=== PATIENT | female | born 1970 | race Caucasian/White ===

== ENCOUNTER → 2020-11-26 09:40 | Outpatient (BNVA) | payer SELFPAY | PROVIDERS: Family Provider Family Medicine; Visit Provider Dermatology | DX: Z01.89 Encounter for other specified special examinations (principal) ==

== ENCOUNTER → 2021-06-19 09:20 | Outpatient (BNVA) | payer OTHER, SELFPAY | PROVIDERS: Family Provider Family Medicine; Visit Provider Nurse Practitioner Family | DX: Z20.822 Contact with and (suspected) exposure to COVID-19 (principal) | CPT/HCPCS: 87635 ==

== ENCOUNTER → 2023-02-16 10:51 | Outpatient (BNVA) | payer SELFPAY | PROVIDERS: Family Provider Family Medicine | DX: Z01.89 Encounter for other specified special examinations (principal) ==

== ENCOUNTER 2024-02-21 11:09 | Observation (INO) | payer OTHER, SELFPAY ==
[2024-02-21] VITALS (8 sets, daily range): BP systolic 126–142; BP diastolic 86–98; PULSE 71–107; RESP 15–24; TEMP 36.6–36.9; O2SAT 93–100; BMI 31.1
--- NOTE | 2024-02-21 11:12 | XRR_ITS ---
PROCEDURE INFORMATION: Exam: XR Chest Exam date and time: 02/21/2024 11:22 AM Age: 54 years old Clinical indication: Pain; Angina pectoris; Additional info: Chest pain TECHNIQUE: Imaging protocol: Radiologic exam of the chest. Views: 1 view. COMPARISON: No relevant prior studies available. FINDINGS: Lungs: Unremarkable. No consolidation. Pleural spaces: Unremarkable. No pleural effusion. No pneumothorax. Heart/Mediastinum: Unremarkable. No cardiomegaly. Bones/joints: Unremarkable. XR/XR chest 1V portable [id number] IMPRESSION: No acute findings.
--- NOTE | 2024-02-21 11:12 | ECG_ITS ---
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 Measurements Intervals [place] Rate: 97 P: 59 NH: 165 QRS: -14 QRSD: 103 T: 65 QT: 357 QTc: 455 Interpretive Statements SINUS RHYTHM LOW QRS VOLTAGE IN PRECORDIAL LEADS [QRS DEFLECTION < 1.0 mV IN CHEST LEADS] INCOMPLETE RIGHT BUNDLE BRANCH BLOCK [90+ ms QRS DURATION, TERMINAL R IN V1/V2, 40+ ms S IN I/aVL/V4/V5/V6] POSSIBLE ANTERIOR MYOCARDIAL INFARCTION , OF INDETERMINATE AGE [30 ms Q WAVE IN V3/V4, OR R < 0.2 mV IN V4] No previous ECG available for comparison Electronically Signed On 02-21-2024 16:06:13 CDT by Valentino Storey M.D. [id number]
[2024-02-21 12:17] LABS: Basophils % 0.3 %; Eosinophils # 0.1 10^3/uL (0.0-0.8); Eosinophils % 1.1 %; Hematocrit 42.7 % (36-47); Lymphocytes # 2.4 10^3/uL (0.8-4.8); Lymphocytes % 25.1 %; Mean Corpuscular HGB Conc 32.8 g/dL (30-55); Mean Corpuscular Hemoglobin 31.3 pg (27-33); Mean Corpuscular Volume 95.5 fl (85-98); Mean Platelet Volume 9.6 fL (7.4-10.4); Monocytes # 0.6 10^3/uL (0.2-0.9); Monocytes % 6.2 %; Neutrophils # 6.34 10^3/uL (1.8-7.7); Neutrophils % 67.1 %; Nucleated Red Blood Cells % 0 %; Platelet Count 164 10^3/cmm (157-399); Red Blood Count 4.47 10^6/uL (3.85-5.65); Red Cell Distribution Width 12.4 % (12.1-15.1); White Blood Count 9.45 10^3/uL (3.29-11.43)
[2024-02-21 12:35] LABS: Alanine Aminotransferase 15 U/L (0-33); Albumin Level 4.3 g/dL (3.5-5.2); Alkaline Phosphatase 86 U/L (35-105); Anion Gap 15.4 (5-19); Aspartate Amino Transferase 23 U/L (0-32); Blood Urea Nitrogen 9 mg/dL (6-20); Calcium 9.4 mg/dL (8.5-10.5); Carbon Dioxide 25 mmol/L (22-29); Chloride 102 mmol/L (98-107); Creatinine Clr Calc Pharmacy 107.0071; Glomerular Filtration Rate 86.6 mL/min (90-130); Glucose 107 mg/dL (65-115); Osmolality Calculated 285 mOsm/kg (285-295); Potassium 4.4 mmol/L (3.5-5.1); Sodium 138 mmol/L (136-145); Total Bilirubin 0.4 mg/dL (0.15-1.2); Total Protein 7.3 g/dL (6.6-8.7)
[2024-02-21 12:36] LABS: Troponin(5th) Baseline 86 ng/L (0-10)
--- NOTE | 2024-02-21 13:12 | ECG_ITS ---
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 Measurements Intervals [place] Rate: 79 P: 39 GA: 120 QRS: -1 QRSD: 98 T: 38 QT: 391 QTc: 448 Interpretive Statements SINUS RHYTHM INDETERMINATE AXIS LOW QRS VOLTAGE IN PRECORDIAL LEADS [QRS DEFLECTION < 1.0 mV IN CHEST LEADS] INCOMPLETE RIGHT BUNDLE BRANCH BLOCK [90+ ms QRS DURATION, TERMINAL R IN V1/V2, 40+ ms S IN I/aVL/V4/V5/V6] ST DEVIATION AND MODERATE T-WAVE ABNORMALITY, CONSIDER ANTERIOR ISCHEMIA [-0.1+ mV T-WAVE IN V3/V4] Compared to ECG 02/21/2024 11:15:30 Indeterminate axis now present T-wave abnormality now present Possible ischemia now present Myocardial infarct finding no longer present Electronically Signed On 02-21-2024 16:08:24 CDT by Valentino Storey M.D. [id number]
--- NOTE | 2024-02-21 14:49 | ED_ITS ---
HPI - Chest Pain 2 General: Chief Complaint: Chest Pain Stated Complaint: SOB, chest Pain Time Seen by Provider: 02/21/24 14:37 History of Present Illness: 54-year-old female presents with 2 episo jeffrey of chest pain with exertion. She reports yesterday she was walking her dog had an episode of some chest pain, states she went into the house and rested took a nap and the pain went away. She reports then today she went out to feed her chickens was walking out to them when she had some more chest pain with exertion has resolved. Patient also reports that for about the last week she thinks she has had shingles on the left side with a burning sensation along the left chest wall wrapping around into her back. She is not currently having chest pain or shortness of breath. Associated symptoms: Deny abdominal pain, fever(s), nausea or vomiting Related Data Home Medications Medication Instructions Recorded Confirmed epinephrine 0.3 mg/0.3 mL 0.3 mg IM Q10M PRN 06/19/21 01/22/24 injection, auto-injector Previous Rx's Medication Instructions Recorded methylprednisolone 4 mg tablets in See Rx Instructions PO PER PKG DIR 01/22/24 a dose pack (Medrol (Ayad)) #21 ea Allergies Allergy/AdvReac Type Severity Reaction Status Date / Time bupropion [From Wellbutrin] AdvReac anger Verified 01/22/24 10:33 drospirenone AdvReac migraine Verified 01/22/24 10:33 [From Keerthi (28)] ethinyl estradiol AdvReac migraine Verified 01/22/24 10:33 [From Keerthi (28)] Review of Systems 2 Const: Denies: fever(s) or chills Card: Reports: chest pain and dyspnea on exertion Resp: Denies: productive cough, non-productive cough or wheezing GI: Denies: abdominal pain, nausea or vomiting : Denies: flank pain or difficulty voiding Musc: Reports: other (Please see HPI) Neuro: Denies: headache(s) or numbness in extremities Psych: Denies: anxiety PFSH ED 2 PFSH: Social History Smoking and tobacco/nicotine status: never used tobacco/nicotine Physical Exam 2 Const: COMMON NORMALS: no acute distress and patient oriented x3 Resp: COMMON NORMALS: normal respiratory effort, No retractions, No use of accessory muscles and clear to auscultation bilaterally AUSCULTATION: clear to auscultation bilaterally Cardio: COMMON NORMALS: regular rate and regular rhythm RATE: regular rate RHYTHM: regular rhythm GI: COMMON NORMALS: Normal to inspection, nondistended, normoactive bowel sounds present, Soft to palpation and non-tender PALPATION: Yes Soft to palpation Extremity: COMMON NORMALS: full ROM and capillary refill normal Neuro: COMMON NORMALS: patient oriented x3 Psych: COMMON NORMALS: mental status grossly normal, Normal thought process present, cooperative and normal affect THOUGHT PROCESS: Normal thought process present Skin: COMMON NORMALS: no rashes or lesions noted GENERAL SKIN EXAM: no rashes or lesions noted Course 2 Vital Signs: Vital signs: Vital Signs Temperature 98 F 02/21/24 14:18 Pulse Rate 77 02/21/24 17:06 Respiratory Rate 17 02/21/24 17:00 Blood Pressure 137/97 02/21/24 17:06 Pulse Oximetry 97 02/21/24 17:06 Oxygen Delivery Me thod Room Air 02/21/24 15:30 MDM - Chest Pain Medical Decision Making Patient's diagnostic studies ordered reviewed and interpreted by me. Patient does have elevated troponin with a repeat troponin that has a delta change and once again elevated. Patient's EKG probable anterior septal myocardial infarct is of undetermined age with Q waves present in V1 through V4. Patient complains of chest pain and dyspnea with exertion. Patient to be admitted for further inpatient valuation. Patient was initially started on heparin but was switched to Lovenox based on preference of admitting provider. Also discussed with Dr. Valdovinos, security system installer who consulted and will see patient in the hospital to determine further treatment options. Patient was admitted to the hospitalist in stable condition. Lab Data 02/21/24 12:10 02/21/24 12:10 Radiology Impressions Chest X-Ray 02/21/24 11:12 IMPRESSION: No acute findings. Laboratory Results WBC 9.45 10^3/uL (3.29-11.43) 02/21/24 12:10 RBC 4.47 10^6/uL (3.85-5.65) 02/21/24 12:10 Hgb 14.00 g/dL (11.27-16.99) 02/21/24 12:10 Hct 42.7 % (36-47) 02/21/24 12:10 MCV 95.5 fl (85-98) 02/21/24 12:10 MCH 31.3 pg (27-33) 02/21/24 12:10 MCHC 32.8 g/dL (30-55) 02/21/24 12:10 RDW 12.4 % (12.1-15.1) 02/21/24 12:10 Plt Count 164 10^3/cmm (157-399) 02/21/24 12:10 MPV 9.6 fL (7.4-10.4) 02/21/24 12:10 Neut % (Auto) 67.1 % 02/21/24 12:10 Lymph % (Auto) 25.1 % 02/21/24 12:10 [place] % (Auto) 6.2 % 02/21/24 12:10 Eos % (Auto) 1.1 % 02/21/24 12:10 Baso % (Auto) 0.3 % 02/21/24 12:10 Neut # (Auto) 6.34 10^3/uL (1.8-7.7) 02/21/24 12:10 Lymph # (Auto) 2.4 10^3/uL (0.8-4.8) 02/21/24 12:10 [place] # (Auto) 0.6 10^3/uL (0.2-0.9) 02/21/24 12:10 Eos # (Auto) 0.1 10^3/uL (0.0-0.8) 02/21/24 12:10 Baso # (Auto) 0.0 10^3/uL (0.0-0.1) 02/21/24 12:10 Nucleated RBC % (auto) 0 % 02/21/24 12:10 Nucleated RBCs # 0.0 /100WBC 02/21/24 12:10 D-Dimer 6.60 ug/mLFEU (0-0.59) H 02/21/24 12:10 Sodium 138 mmol/L (136-145) 02/21/24 12:10 Potassium 4.4 mmol/L (3.5-5.1) 02/21/24 12:10 Chloride 102 mmol/L (98-107) 02/21/24 12:10 Carbon Dioxide 25 mmol/L (22-29) 02/21/24 12:10 Anion Gap 15.4 (5-19) 02/21/24 12:10 BUN 9 mg/dL (6-20) 02/21/24 12:10 Creatinine 0.7 mg/dL (0.5-0.9) 02/21/24 12:10 GFR Calculation 86.6 mL/min (90-130) L 02/21/24 12:10 Glucose 107 mg/dL (65-115) 02/21/24 12:10 Calculated Osmolality 285 mOsm/kg (285-295) 02/21/24 12:10 Calcium 9.4 mg/dL (8.5-10.5) 02/21/24 12:10 Total Bilirubin 0.4 mg/dL (0.15-1.2) 02/21/24 12:10 AST 23 U/L (0-32) 02/21/24 12:10 ALT 15 U/L (0-33) 02/21/24 12:10 Alkaline Phosphatase 86 U/L (35-105) 02/21/24 12:10 Troponin T Baseline 86 ng/L (0-10) H 02/21/24 12:10 Troponin T 120 Minute 103.6 ng/L (0-10) H 02/21/24 14:20 Delta Troponin T 17.6 ABS# (0-10) H* 02/21/24 14:20 Total Protein 7.3 g/dL (6.6-8.7) 02/21/24 12:10 Albumin 4.3 g/dL (3.5-5.2) 02/21/24 12:10 Globulin 3.0 g/dL (1.3-4.6) 02/21/24 12:10 All radiology interpretation(s) finalized by discharge Discharge Plan Discharge Patient Disposition: Admitted As Inpatient Admit Provider: Amy Dalal Clinical Impression: Non-ST elevated myocardial infarction (non-STEMI) Condition: Stable Coding Level of Care Code ED Power Plant Superintendent for Earl Batista
[2024-02-21 14:54] LABS: Troponin 5 2HR 103.6 ng/L (0-10)
[2024-02-21 14:55] LABS: Troponin 5 2HR Delta 17.6 ABS# (0-10)
[2024-02-21] MEDS: aspirin 81 mg Chew Tablet 324 MG PO (15:13)
[2024-02-21] MEDS: heparin 5,000 unit/mL INJ 1 mL 4000 UNIT IVP (15:15)
[2024-02-21] MEDS: heparin drip 25,000 UNIT/500 ML PREMIX 22.32 UNIT IV (15:18)
--- NOTE | 2024-02-21 15:31 | P.HP_ITS ---
Providers/Chief Complaint 2 Primary Care Provider: [employer]OYEE [employer] Chief Complaint: SOB, chest Pain History of Present Illness Renae Messina is a 54 year old female who presented to the hospital for chief complaint of chest discomfort shortness of breath and diaphoresis. Patient is stating that she was walking her dog a day before her presentation to the ER when she started feeling a little pull on the left side of her chest, initially she thought it was related to her recent itching along the left subcostal region which was radiating towards her back, she was thinking about shingles but never experienced any rash or fever, never experienced any pain. She had recurrent of symptoms on Wednesday that prompted her visit to the ER. 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 Stating that there is family history of blood clots, father had multiple blood clots that were removed and his young age. Patient does not smoke or drink alcohol. Endorsing history of 1 miscarriage. In the ER she was diagnosed with non-STEMI she was put on ACS protocol however I requested D-dimer which came back high CTA chest and venous Doppler was requested Review of Systems 2 Const: Denies: fever(s) Eyes: Denies: change in vision ENMT: Denies: throat pain Card: Reports: chest pain Resp: Reports: dyspnea Medications/Allergies Home Medications Medication Instructions Recorded Confirmed Last Taken Type epinephrine 0.3 mg/0.3 mL 0.3 mg IM Q10M PRN Allergic 06/19/21 02/21/24 Unknown History injection, auto-injector Reaction Allergies Allergy/AdvReac Type Severity Reaction Status Date / Time bupropion [From Wellbutrin] AdvReac anger Verified 01/22/24 10:33 drospirenone AdvReac migraine Verified 01/22/24 10:33 [From Keerthi (28)] ethinyl estradiol AdvReac migraine Verified 01/22/24 10:33 [From Keerthi (28)] PFSH Acute 2 PFSH: Medical History (Updated 02/22/24 @ 11:07 by Amy Dalal MD) Hyperlipidemia LDL goal <70 Essential hypertension Social History Smoking and tobacco/nicotine status: never used tobacco/nicotine Vitals/I&O/Wt Last Vital Signs Temp 98 F 02/21/24 14:18 Pulse 82 02/21/24 14:18 BP 131/86 02/21/24 14:18 Pulse Ox 100 02/21/24 14:18 O2 Del Method Room Air 02/21/24 14:18 Weight last 48 hrs Weight 92.986 kg Physical Exam 2 Narrative: No active chest pain Hemodynamically stable GCS 15 Euvolemic No lower extremity swelling Pleasant and cooperative S1, S2 Nonfocal neuroexam Data 02/22/24 03:16 02/22/24 03:16 A&P Assessment and plan (1) Essential hypertension: (2) Non-ST elevated myocardial infarction (non-STEMI): (3) Hyperlipidemia LDL goal <70: (4) DVT (deep venous thrombosis): (5) Pulmonary embolism: Plan Non-STEMI Start ACS protocol loaded with aspirin and Plavix Dr. Ramírez consulted N.p.o. after midnight Full code Patient noting family history of hypercoagulable state Requested D-dimer which came back high, requested CTA chest and venous Doppler Patient does not have a history of hypertension, does not smoke Not using oral contraceptive pills for menopausal symptoms Attestations 2 Medical Necessity Statement*: Anticipating more than 2 midnights for management of non-STEMI Coding Level of Care Code Acute Code for Chg Fwd Diagnoses Essential hypertension I10 Non-ST elevated myocardial infarction (non-STEMI) I21.4 Hyperlipidemia LDL goal <70 E78.5 DVT (deep venous thrombosis) I82.409 Pulmonary embolism I26.99
[2024-02-21] MEDS: enoxaparin 100 mg/mL Syringe 90 MG SUBCUT (16:14)
--- NOTE | 2024-02-21 16:50 | USCV_ITS ---
Renae Messina Age: 54 Gender: F : 1970 Exam Date: 02/21/2024 18:10 Ordering Phys: Amy Dalal MD Technologist: Exam Location: [facility] [place] Indication: nstemi BP: 142 / 88 HR: 73 Rhythm: Sinus Technical Quality: MEASUREMENTS (Male / Female) Normal Values 2D ECHO LV Diastolic Diameter PLAX 3.3 cm 4.2 - 5.9 / 3.9 - 5.3 cm IVS Diastolic Thickness 1.1 cm 0.6 - 1.0 / 0.6 - 0.9 cm IVS Systolic Thickness 1.4 cm LVPW Diastolic Thickness 1.1 cm 0.6 - 1.0 / 0.6 - 0.9 cm LVPW Systolic Thickness 1.8 cm LVOT Diameter 2.0 cm LV Ejection Fraction 2D Teich 51.6 % LV Ejection Fraction MOD 4C 54.7 % LV Ejection Fraction MOD 2C 44.2 % LV Ejection Fraction 2C AL 44.5 % LA Diameter 2.8 cm RA Systolic Volume 4C AL 53.8 ml RA Systolic Volume 4C MOD 52.0 ml Aorta at Sinotubular Diameter 2.4 cm IVC Diameter 2.1 cm M-MODE LA Ao Ratio MM 0.9 AV Cusp Separation MM 2.4 cm DOPPLER AV Peak Velocity 115.0 cm/s LVOT Peak Velocity 89.0 cm/s AV Area Cont Eq vti 4.2 cm squared AV Area Cont Eq pk 2.4 cm squared MV Area PHT 4.3 cm squared Mitral E to A Ratio 0.8 TV Peak Velocity 220.0 cm/s TR Peak Velocity 254.0 cm/s TR Peak Gradient 25.8 mmHg TV Peak E Velocity 74.0 cm/s Right Atrial Pressure 3.0 mmHg Pulmonary Artery Systolic Pressu 28.8 mmHg PV Peak Velocity 53.5 cm/s FINDINGS Left Ventricle Normal left ventricular size and systolic function, EF 55%.no regional wall motion abnormalities. Right Ventricle Mildly dilated right ventricle with a slightly diminished ejection fraction Right Atrium Mildly dilated Left Atrium Normal left atrial size. Mitral Valve No gross abnormalities noted Aortic Valve No gross abnormalities noted Tricuspid Valve No gross abnormalities noted Pulmonic Valve Pulmonic valve not well visualized. Pericardium No pericardial effusion. Aorta Normal aortic annulus size. IVC Inferior vena cava not visualized. CONCLUSIONS Normal left ventricular size and systolic function, EF 55%.no regional wall motion abnormalities. Mildly dilated right ventricle with a slightly diminished ejection fraction. Mildly dilated right atrium There is no pericardial effusion. There are no intracardiac masses. No similar previous studies are available for comparison Dr Gail Lucero MD FAC (Electronically Signed) Final Date: 21 February 2024 19:27 S
--- NOTE | 2024-02-21 17:13 | ECG_ITS ---
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 Measurements Intervals [place] Rate: 77 P: 53 TN: 136 QRS: 17 QRSD: 102 T: 23 QT: 414 QTc: 469 Interpretive Statements SINUS RHYTHM INDETERMINATE AXIS LOW QRS VOLTAGE IN PRECORDIAL LEADS [QRS DEFLECTION < 1.0 mV IN CHEST LEADS] MODERATE T-WAVE ABNORMALITY, CONSIDER ANTERIOR ISCHEMIA [-0.1+ mV T-WAVE IN V3/V4] Compared to ECG 02/21/2024 14:15:58 Incomplete right bundle-branch block no longer present T-wave abnormality still present Possible ischemia still present Electronically Signed On 02-22-2024 7:59:18 CDT by Valentino Storey M.D. [id number]
--- NOTE | 2024-02-21 17:23 | PC.NURSE ---
patient transferred from ED to CSU at 1715.
[2024-02-21 17:31] LABS: Thyroid Stimulating Hormone 2.39 uIU/mL (0.27-4.20)
[2024-02-21 17:32] LABS: Estmated Average Glucose 103; Hemoglobin A1C 5.2 % (4.0-6.0)
[2024-02-21] MEDS: pantoprazole 40 mg SDV IVP (17:52)
[2024-02-21] MEDS: clopidogrel 300 mg Tablet PO (17:52)
[2024-02-21 19:27] LABS: Troponin 5 6HR 76.46 ng/L (0-10)
[2024-02-21 19:28] LABS: Troponin 5 6HR Delta -9.54 ng/L (0-12)
--- NOTE | 2024-02-21 19:56 | USR_ITS ---
PROCEDURE INFORMATION: Exam: US Duplex Lower Extremity Veins, Bilateral Exam date and time: 02/21/2024 8:14 PM Age: 54 years old Clinical indication: Abnormal findings; Abnormal lab test; Elevated d-dimer; Additional info: Swelling TECHNIQUE: Imaging protocol: Real-time duplex ultrasound of the bilateral extremities with 2-D corbett scale, color Doppler flow and spectral waveform analysis including responses to compression and other maneuvers (when performed) with image documentation. Complete exam focused on the lower extremity veins. COMPARISON: No relevant prior studies available. FINDINGS: Right deep veins: Unremarkable. The common femoral, femoral, proximal profunda femoral and popliteal veins are patent without thrombus. Normal Doppler waveforms. Normal compressibility and/or augmentation response. Visualized posterior tibial and peroneal veins appear unremarkable. Left deep veins: The common femoral, femoral, and proximal profunda femoral veins are patent without thrombus. Normal Doppler waveforms. Normal compressibility and/or augmentation response. Partially occluding DVT is seen in the left popliteal vein and left peroneal vein with noncompressibility. Visualized posterior tibial vein appears unremarkable. Superficial veins: Greater saphenous veins at the saphenofemoral junctions are patent bilaterally without thrombus. Soft tissues: Unremarkable. US/[place] [id number] IMPRESSION: 1. No evidence of deep vein thrombosis of the right lower extremity. 2. Partially occluding deep vein thrombosis involving the left popliteal and peroneal veins of the left lower extremity.
--- NOTE | 2024-02-21 20:01 | P.CONIM_ITS ---
Providers/Reason For Consult 2 Consulting Physician/Specialty*: Amy Ramírez MD/cardiology Reason for Consult*: Chest pain Non-ST elevation FL Hyperlipidemia Hypertension Requesting Physician: Dr. 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 According to the patient she has a history of hypertension hyperlipidemia she was walking her dog yesterday she noticed chest pressure and shortness of breath to the extent she felt diaphoretic therefore she sat down which improved symptoms however she noticed being fatigued she slept for more than 3 hours. Today she woke up tried mild exertion which brought the similar symptoms therefore decided to come to the ER. She was noted to have abnormal delta fifth generation troponin in the range qualifying for non-ST elevation FL. Twelve-lead EKG showed sinus rhythm normal anterolateral T wave inversion with inferior nonspecific ST changes suggestive of possible ischemia in anterior wall. Patient was started on IV heparin currently she is chest pain-free. Denies any PND orthopnea. Echocardiogram was performed which showed normal ejection fraction no wall motion abnormality. Medications/Allergies Home Medications Medication Instructions Recorded Confirmed Last Taken Type epinephrine 0.3 mg/0.3 mL 0.3 mg IM Q10M PRN Allergic 06/19/21 02/21/24 Unknown History injection, auto-injector Reaction Allergies Allergy/AdvReac Type Severity Reaction Status Date / Time bupropion [From Wellbutrin] AdvReac anger Verified 01/22/24 10:33 drospirenone AdvReac migraine Verified 01/22/24 10:33 [From Keerthi (28)] ethinyl estradiol AdvReac migraine Verified 01/22/24 10:33 [From Keerthi (28)] Current Medications Generic Name Dose Route Start Last Admin Trade Name Freq PRN Reason Stop Dose Admin Pantoprazole Sodium 40 mg 02/21/24 18:00 02/21/24 17:52 Pantoprazole 40 Mg Sdv IVP 40 mg BID AURY Administration PFSH Acute 2 PFSH: Medical History (Updated 02/21/24 @ 20:15 by Amy Ramírez MD) Hyperlipidemia LDL goal <70 Essential hypertension Social History Smoking and tobacco/nicotine status: never used tobacco/nicotine Vitals/I&O/Wt Last Vital Signs Temp 98.4 F 02/21/24 17:52 Pulse 71 02/21/24 17:52 Resp 16 02/21/24 17:52 BP 142/88 02/21/24 17:52 Pulse Ox 99 02/21/24 17:52 O2 Del Method Room Air 02/21/24 17:52 02/21/24 02/21/24 02/21/24 06:59 14:59 22:59 Intake Total 20.46 / 20.46 Balance 20.46 / 20.46 Weight last 48 hrs Weight 213 lb 13.574 oz Weight 205 lb Physical Exam 2 Const: OTHER: GENERAL: Patient is alert, awake and oriented x3. HEART: Regular S1 and S2. No murmur, rub or gallop. LUNGS: Clear to auscultate bilaterally. EXTREMITIES: Lower extremities without edema bilaterally. Data 02/21/24 12:10 02/21/24 12:10 A&P Assessment and plan (1) Non-ST elevated myocardial infarction (non-STEMI): Patient is ruled in for non-ST elevation FL, advise statin beta-mojgan heparin, echocardiogram showed normal ejection fraction no wall motion abnormality cannot rule out myopericarditis however will proceed with left heart catheterization further plan be advised as per problems the patient. (2) Essential hypertension: Well-controlled beta-mojgan is added (3) Hyperlipidemia LDL goal <70: High intensity statin we will be advised Consult Attestations 2 Medical Necessity Statement: Patient requires continuation of hospitalization for above defined care. Coding Level of Care Code Acute Code for Chg Fwd Diagnoses Non-ST elevated myocardial infarction (non-STEMI) I21.4 Essential hypertension I10 Hyperlipidemia LDL goal <70 E78.5
--- NOTE | 2024-02-21 20:38 | CTR_ITS ---
PROCEDURE INFORMATION: Exam: CTA Chest With Contrast Exam date and time: 02/21/2024 9:37 PM Age: 54 years old Clinical indication: Angina; Additional info: Cp and SOB, lle dvt TECHNIQUE: Imaging protocol: Computed tomographic angiography of the chest with contrast. Exam focused on the arteries. 3D rendering (Not supervised by radiologist): MIP and/or 3D reconstructed images were created by the technologist. Radiation optimization: All CT scans at this facility use at least one of these dose optimization techniques: automated exposure control; mA and/or kV adjustment per patient size (includes targeted exams where dose is matched to clinical indication); or iterative reconstruction. Contrast material: OMNI 350; Contrast volume: 100 ml; Contrast route: INTRAVENOUS (IV); COMPARISON: CR XR chest 1V portable [id number] 02/21/2024 11:22 AM RADIATION DOSE METRICS: Total DLP (mGy-cm): 411 FINDINGS: Pulmonary arteries: Extensive bilateral pulmonary emboli, including in the lobar arteries and segmental arteries. No large saddle embolism. Aorta: No aortic aneurysm or dissection. Lungs: Minimal dependent atelectasis. No consolidation or obvious pulmonary infarct. Pleural spaces: No pneumothorax or pleural effusion. Heart: No cardiomegaly. No pericardial effusion. Heart RV/LV ratio: 1.5, indicative of right heart strain. Coronary arteries: No coronary artery calcifications. Lymph nodes: No adenopathy. Bones/joints: No acute osseous abnormality. Soft tissues: Unremarkable. CT/CT angio chest PE protcl [id number] IMPRESSION: 1. Extensive bilateral pulmonary emboli, including in the lobar arteries and segmental arteries. No large saddle embolism. 2. Right heart strain, with RV/LV ratio of 1.5. 3. Minimal dependent atelectasis. 4. No consolidation or obvious pulmonary infarct.
[2024-02-21] MEDS: iohexol 350 mg/mL 500 mL Btl (per mL) IV (21:45)
[2024-02-22] VITALS (7 sets, daily range): BP systolic 115–127; BP diastolic 71–84; PULSE 57–70; RESP 14–17; TEMP 36.6–36.7; O2SAT 98–100
[2024-02-22 03:39] LABS: Basophils % 0.5 %; Eosinophils # 0.1 10^3/uL (0.0-0.8); Eosinophils % 1.7 %; Hematocrit 38.9 % (36-47); Lymphocytes # 3.4 10^3/uL (0.8-4.8); Lymphocytes % 45.4 %; Mean Corpuscular HGB Conc 32.6 g/dL (30-55); Mean Corpuscular Hemoglobin 31.4 pg (27-33); Mean Platelet Volume 9.9 fL (7.4-10.4); Monocytes # 0.5 10^3/uL (0.2-0.9); Monocytes % 6.9 %; Neutrophils # 3.41 10^3/uL (1.8-7.7); Neutrophils % 45.4 %; Nucleated Red Blood Cells % 0 %; Platelet Count 157 10^3/cmm (157-399); Red Blood Count 4.05 10^6/uL (3.85-5.65); Red Cell Distribution Width 12.4 % (12.1-15.1); White Blood Count 7.53 10^3/uL (3.29-11.43)
[2024-02-22 03:56] LABS: Blood Urea Nitrogen 9 mg/dL (6-20); Calcium 8.8 mg/dL (8.5-10.5); Carbon Dioxide 24 mmol/L (22-29); Chloride 106 mmol/L (98-107); Creatinine Clr Calc Pharmacy 109.2817; Glomerular Filtration Rate 86.6 mL/min (90-130); Glucose 103 mg/dL (65-115); Magnesium 1.7 mg/dL (1.7-2.3); Osmolality Calculated 291 mOsm/kg (285-295); Sodium 141 mmol/L (136-145)
[2024-02-22] MEDS: enoxaparin 100 mg/mL Syringe 90 MG SUBCUT (04:19)
[2024-02-22] MEDS: clopidogrel 75 mg Tablet PO (08:05)
[2024-02-22] MEDS: aspirin 81 mg EC Tablet PO (08:06)
--- NOTE | 2024-02-22 08:28 | PC.NURSE ---
Addendum entered by Nila Platt RN 02/22/24 08:31: Informed Dr Dalal. Original Note: patient refusing to take most medications this morning stating I do not take any home medications. However patient did agree to take aspirin and plavix for her known DVTs.
--- NOTE | 2024-02-22 09:19 | PC.CHAP ---
Pastoral Care Encounter/Spiritual Assessment Type of Contact [] Declined cancer registry manager visit [] Patient/Family/Request visit [] Outpatient visit [] Follow-up visit [] Physician referral [] Code/Alert [x] Routine visit [] Staff referral [] Actively dying [] Patient sleeping [] Family support [] [] Out of room [] Palliative care [] [] Receiving care in room [] Pre-surgical visit [] Trauma [] Long length of stay [] ICU visit [] Other: Relational/Emotional Strength [x] Patient feels connected with others/family/visitors/staff [] Distress [] Loneliness/isolation [] Abandonment Spirituality of Patient [x] Person of Radha [] Attends Jehovah'S Witness of their Radha [x] Believes in Prayer [] Reads Bible or Zoroastrian materials [] There are Spiritual issues to be addressed [employer] Interventions [x] Prayer [x] Active listening [] Non-anxious presence [x] Spiritual/emotional support [] Crisis/trauma care [] Spiritual counseling [] Bereavement support [] Provided bereavement packet [] Provided Bible/devotional materials [] Provided toy/stuffed animal, coloring book to patient or family member [] Provided Communion [] Anointing/[place] [] Salvation [x] Completed spiritual assessment [] Other: Impact on Illness or Injury [] Angry [] Fearful [] Anxious [] Often cries [] Exhaustion [] Unable to work [] Unable to attend sikhism [] Unable to walk/stand [] Unable to read [] Unable to drive [] Unable to eat/drink [] Unable to sleep [] Unable to be with family [] Patient intubated [] Other: Summary Time spent with patient 5 min
--- NOTE | 2024-02-22 10:21 | P.PN_ITS ---
Subjective 2 Subjective: No overnight event patient was noted to have pulmonary embolism on CTA left heart catheterization was canceled Vitals/I&O/Wt Last Vital Signs Temp 97.9 F 02/22/24 07:07 Pulse 66 02/22/24 07:54 Resp 16 02/22/24 07:54 BP 127/71 02/22/24 07:07 Pulse Ox 98 02/22/24 07:54 O2 Del Method Room Air 02/22/24 07:54 02/21/24 02/22/24 02/22/24 22:59 06:59 14:59 Intake Total 270.46 / 270.46 610 / 610 Balance 270.46 / 270.46 610 / 610 Weight last 48 hrs Weight 213 lb 13.574 oz Weight 213 lb 13.574 oz Weight 205 lb Physical Exam 2 Const: OTHER: GENERAL: Patient is alert, awake and oriented x3. HEART: Regular S1 and S2. No murmur, rub or gallop. LUNGS: Clear to auscultate bilaterally. EXTREMITIES: Lower extremities without edema bilaterally. Data 02/22/24 03:16 02/22/24 03:16 A&P Assessment and plan (1) Non-ST elevated myocardial infarction (non-STEMI): Type II secondary to pulmonary embolism/DVT, echocardiogram showed mildly enlarged RV, left heart catheterization was canceled will switch patient to anticoagulation for 1 year since it is known provokable cause. (2) Essential hypertension: Well-controlled continue medicine (3) Hyperlipidemia LDL goal <70: High intensity statin we will be advised Attestations 2 Medical Necessity Statement*: From May cardiovascular perspective patient can be discharged on anticoagulation will see patient in the clinic in 6 to 8 weeks Coding Level of Care Code Acute Code for Chg Fwd Diagnoses Non-ST elevated myocardial infarction (non-STEMI) I21.4 Essential hypertension I10 Hyperlipidemia LDL goal <70 E78.5
--- NOTE | 2024-02-22 11:08 | PM.DCS ---
Discharge Providers Date of Admission: 02/21/24 16:27 Date of Discharge: February 22, 2024 Attending Provider at Admission: Amy Dalal MD Attending Provider at Discharge: Amy Dalal MD Primary Care Provider: [employer] Diagnoses at Discharge Discharge Diagnosis (1) Essential hypertension: Status: Acute (2) Non-ST elevated myocardial infarction (non-STEMI): Status: Acute (3) Hyperlipidemia LDL goal <70: Status: Acute (4) DVT (deep venous thrombosis): Status: Acute (5) Pulmonary embolism: Status: Acute Reason for Visit Reason for Visit: SOB, chest Pain Hospital Course Hospital Course 54-year-old female who presented with chest pain was diagnosed with non-STEMI troponin leak, remained chest pain-free, her D-dimer returned high at 6.6, CTA chest and venous Doppler revealed bilateral PE and right heart strain without saddle embolism and left leg DVT. She was started on therapeutic Lovenox in the hospital, ACS protocol discontinued, her troponin leak is likely related to heart strain from pulmonary embolism, echo showed preserved EF with mildly dilated right ventricle consistent with PE, patient remained hemodynamically stable, no active chest pain, this is unprovoked pulmonary embolism considering family history requested acquired thrombophilia workup, autoimmune disease protein C, protein S activity, patient will need lifelong anticoagulating agent I will give her referral to see Dr. Jeffries as well. She carries a history of miscarriage requested antiphospholipid antibodies as well. Patient does not have any history of cancer, colonoscopy & mammograms unremarkable for any malignant pathological lesions as per the patient. 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 Physical Exam Narrative: Awake and alert GCS 15 Hemodynamically stable Euvolemic Pleasant cooperative Discharge Data Studies Completed and Pending Completed Studies During Hospitalization Category Date Time Status CT angio chest PE protcl [id number] Stat Cat Scan 02/21/24 20:38 Completed XR chest 1V portable [id number] Urgent Exams 02/21/24 11:12 [place] [id number] Routine Ultrasound 02/21/24 19:56 Completed CV. echo complete* [id number] Routine Ultrasound 02/21/24 16:50 Completed Pending at discharge Category Date Time Status KACIE Profile Rheumatology Routine Lab 02/22/24 10:50 Received Antiphospholipid Antibody Ramirez Routine Lab 02/22/24 10:50 Received PROTEIN C, ACTIVITY Routine Lab 02/22/24 10:50 Received PROTEIN S, ACTIVITY Routine Lab 02/22/24 10:50 Received Radiology Impressions Chest X-Ray 02/21/24 11:12 IMPRESSION: No acute findings. Venous Duplex 02/21/24 19:56 IMPRESSION: 1. No evidence of deep vein thrombosis of the right lower extremity. 2. Partially occluding deep vein thrombosis involving the left popliteal and peroneal veins of the left lower extremity. ADDENDUM: 02/21/248 THIS REPORT CONTAINS FINDINGS THAT MAY BE CRITICAL TO PATIENT CARE. The findings were verbally communicated via telephone conference with Dr Carpenter at 10:25 PM CDT on 02/21/2024. The findings were acknowledged and understood. Awaiting CTA chest. Chest CTA 02/21/24 20:38 IMPRESSION: 1. Extensive bilateral pulmonary emboli, including in the lobar arteries and segmental arteries. No large saddle embolism. 2. Right heart strain, with RV/LV ratio of 1.5. 3. Minimal dependent atelectasis. 4. No consolidation or obvious pulmonary infarct. ADDENDUM: 02/21/242244 ADDENDUM: THIS REPORT CONTAINS FINDINGS THAT MAY BE CRITICAL TO PATIENT CARE. The findings were verbally communicated via telephone conference with THERESA Loza at 10:43 PM CDT on 02/21/2024. The findings were acknowledged and understood. Laboratory Results WBC 7.53 10^3/uL (3.29-11.43) 02/22/24 03:16 RBC 4.05 10^6/uL (3.85-5.65) 02/22/24 03:16 Hgb 12.70 g/dL (11.27-16.99) 02/22/24 03:16 Hct 38.9 % (36-47) 02/22/24 03:16 MCV 96.0 fl (85-98) 02/22/24 03:16 MCH 31.4 pg (27-33) 02/22/24 03:16 MCHC 32.6 g/dL (30-55) 02/22/24 03:16 RDW 12.4 % (12.1-15.1) 02/22/24 03:16 Plt Count 157 10^3/cmm (157-399) 02/22/24 03:16 MPV 9.9 fL (7.4-10.4) 02/22/24 03:16 Neut % (Auto) 45.4 % 02/22/24 03:16 Lymph % (Auto) 45.4 % 02/22/24 03:16 Ramsey % (Auto) 6.9 % 02/22/24 03:16 Eos % (Auto) 1.7 % 02/22/24 03:16 Baso % (Auto) 0.5 % 02/22/24 03:16 Neut # (Auto) 3.41 10^3/uL (1.8-7.7) 02/22/24 03:16 Lymph # (Auto) 3.4 10^3/uL (0.8-4.8) 02/22/24 03:16 Ramsey # (Auto) 0.5 10^3/uL (0.2-0.9) 02/22/24 03:16 Eos # (Auto) 0.1 10^3/uL (0.0-0.8) 02/22/24 03:16 Baso # (Auto) 0.0 10^3/uL (0.0-0.1) 02/22/24 03:16 Nucleated RBC % (auto) 0 % 02/22/24 03:16 Nucleated RBCs # 0.0 /100WBC 02/22/24 03:16 D-Dimer 6.60 ug/mLFEU (0-0.59) H 02/21/24 12:10 Sodium 141 mmol/L (136-145) 02/22/24 03:16 Potassium 4.0 mmol/L (3.5-5.1) 02/22/24 03:16 Chloride 106 mmol/L (98-107) 02/22/24 03:16 Carbon Dioxide 24 mmol/L (22-29) 02/22/24 03:16 Anion Gap 15.0 (5-19) 02/22/24 03:16 BUN 9 mg/dL (6-20) 02/22/24 03:16 Creatinine 0.7 mg/dL (0.5-0.9) 02/22/24 03:16 GFR Calculation 86.6 mL/min (90-130) L 02/22/24 03:16 Glucose 103 mg/dL (65-115) 02/22/24 03:16 Estimat Average Glucose 103 02/21/24 12:10 Hemoglobin A1c 5.2 % (4.0-6.0) 02/21/24 12:10 Calculated Osmolality 291 mOsm/kg (285-295) 02/22/24 03:16 Calcium 8.8 mg/dL (8.5-10.5) 02/22/24 03:16 Magnesium 1.7 mg/dL (1.7-2.3) 02/22/24 03:16 Total Bilirubin 0.4 mg/dL (0.15-1.2) 02/21/24 12:10 AST 23 U/L (0-32) 02/21/24 12:10 ALT 15 U/L (0-33) 02/21/24 12:10 Alkaline Phosphatase 86 U/L (35-105) 02/21/24 12:10 Troponin T Baseline 86 ng/L (0-10) H 02/21/24 12:10 Troponin T 120 Minute 103.6 ng/L (0-10) H 02/21/24 14:20 Delta Troponin T 17.6 ABS# (0-10) H* 02/21/24 14:20 Troponin T Hi Sens 6Hr 76.46 ng/L (0-10) H 02/21/24 18:07 Troponin T Hi Sens 6Hr Delta -9.54 ng/L (0-12) L 02/21/24 18:07 Total Protein 7.3 g/dL (6.6-8.7) 02/21/24 12:10 Albumin 4.3 g/dL (3.5-5.2) 02/21/24 12:10 Globulin 3.0 g/dL (1.3-4.6) 02/21/24 12:10 TSH 2.39 uIU/mL (0.27-4.20) 02/21/24 12:10 Vitals Last Vital Signs Temp 97.9 F 02/22/24 07:07 Pulse 66 02/22/24 07:54 Resp 16 02/22/24 07:54 BP 127/71 02/22/24 07:07 Pulse Ox 98 02/22/24 07:54 O2 Del Method Room Air 02/22/24 07:54 Discharge Plan Discharge Patient Disposition: Home Condition: Stable Prescriptions: New Eliquis 5 mg tablet 5 mg PO BID Qty: 120 8RF Rx Instructions: 10 mg twice daily for 7 days then 5 mg twice daily lifelong Continued epinephrine 0.3 mg/0.3 mL auto-injector 0.3 mg IM Q10M PRN (Reason: Allergic Reaction) Rx Instructions: for 2 doses Discharge Orders: Discharge Order (Routine); Ordered 02/22/24 Ordered By: Amy Dalal Referrals: Moraima Tinsley MD [Family Provider] - 02/29/24 9:15 am Caroline Britton FNP [Nurse Practitioner] - 03/01/24 4:00 pm Jeffrey Jeffries MD [Hospitalist] - 2 weeks (Acquired thrombophilia) Patient Instructions: Opioid Safety Discharge Attestations Time Spent in Discharge Care*: greater than 30 min Quality Metrics Clinical Quality Measures [ No reported AMI, CVA or VTE this stay] Coding Level of Care Code Acute Code for Chg Fwd Diagnoses Essential hypertension I10 Non-ST elevated myocardial infarction (non-STEMI) I21.4 Hyperlipidemia LDL goal <70 E78.5 DVT (deep venous thrombosis) I82.409 Pulmonary embolism I26.99
--- NOTE | 2024-02-22 12:30 | PC.NURSE ---
patient discharged to home. Instructed patient on new medication and follow up needs. Patient verbalized complete understanding. IV removed intact, tolerated well. Patient left ambulatory with family at side. Patient denies pain or needs will continue to monitor.
[2024-02-23 14:41] LABS: COMPLEMENT, TOTAL (CH50) >60 U/mL (31-60)
[2024-02-24 06:16] LABS: CENTROMERE B ANTIBODY <1.0 NEG AI (<1.0 NEG); JO-1 ANTIBODY <1.0 NEG AI (<1.0 NEG); RNP ANTIBODY <1.0 NEG AI (<1.0 NEG); SCL-70 ANTIBODY <1.0 NEG AI (<1.0 NEG); SJOGREN'S ANTIBODY (SS-A) <1.0 NEG AI (<1.0 NEG); SM ANTIBODY <1.0 NEG AI (<1.0 NEG); SS-B <1.0 NEG AI (<1.0 NEG)
[2024-02-24 16:00] LABS: ANA SCREEN, IFA NEGATIVE (NEGATIVE)
[2024-02-24 22:35] LABS: PROTEIN S, ACTIVITY 89 % normal (60-140)
[2024-02-25 07:30] LABS: THYROID PEROXIDASE ANTIBODIES 1 IU/mL (<9)
[2024-02-25 13:05] LABS: COMPLEMENT COMPONENT C3C 165 mg/dL (83-193); COMPLEMENT COMPONENT C4C 24 mg/dL (15-57)
[2024-02-26 05:24] LABS: PROTEIN C, ACTIVITY 148 % normal (70-180)
[2024-02-28 00:19] LABS: DNA AB (DS) CRITHIDIA,IFA NEGATIVE (NEGATIVE)
[2024-03-01 08:23] LABS: Phosphatidylserine IgG 10 U (< OR = 30); Phosphatidylserine IgM <9 U (< OR = 30)
[2024-03-02 08:19] LABS: Beta 2 Glycoprotein IGA <2.0 U/mL; Beta 2 Glycoprotein IGG <2.0 U/mL; Beta 2 Glycoprotein IGM <2.0 U/mL; CARDIOLIPIN AB (IGA) <2.0 APL-U/mL; CARDIOLIPIN AB (IGG) <2.0 GPL-U/mL; CARDIOLIPIN AB (IGM) <2.0 MPL-U/mL
== END 2024-02-22 12:45 | disposition home or self-care (01) ==
LOC: ER 14:52 → CSU 17:09
PROVIDERS: Internal Medicine Cardiovascular Disease; Physician Assistant; Admitting Provider Internal Medicine; Emergency Provider Student in an Organized Health Care Education/Training Program; Family Provider Family Medicine; PCP Family Medicine; Visit Provider Internal Medicine
DX: I21.4 Non-ST elevation (NSTEMI) myocardial infarction (principal); I10 Essential (primary) hypertension; E78.5 Hyperlipidemia, unspecified; I82.409 Acute embolism and thrombosis of unspecified deep veins of unspecified lower extremity; I26.99 Other pulmonary embolism without acute cor pulmonale
CPT/HCPCS: 36415; 71045; 71275; 80048; 80053; 83036; 83516; 83735; 84443; 84484; 85025; 85303; 85306; 85378; 86146; 86147; 86160; 86162; 86235; 86255; 86376; 93005; 93306; 93970; 96365; 96372; 96375; 99285; G0378; J1644; J1650; J2470

== ENCOUNTER 2024-03-01 20:53 | Emergency (ER) | payer OTHER, SELFPAY ==
[2024-03-01 21:03] VITALS: BP 112/76; PULSE 68; RESP 16; TEMP 36.7; O2SAT 98; BMI 31.9
--- NOTE | 2024-03-01 21:26 | USR_ITS ---
PROCEDURE INFORMATION: Exam: US Duplex Right Lower Extremity Veins, Limited Exam date and time: 03/01/2024 9:56 PM Age: 54 years old Clinical indication: Pain; Leg, lower; Right; Patient HX: HX of pe and dvt in lt leg; Additional info: Atraumtic pain rle TECHNIQUE: Imaging protocol: Real-time duplex ultrasound of the right extremity with 2-D corbett scale, color Doppler flow and spectral waveform analysis including responses to compression and other maneuvers (when performed) with image documentation. Limited exam was focused on the right lower extremity veins. COMPARISON: [place] [id number] 02/21/2024 8:14 PM FINDINGS: Right deep veins: Unremarkable. The common femoral, femoral, proximal profunda femoral and popliteal veins are patent without thrombus. Normal Doppler waveforms. Normal compressibility and/or augmentation response. Superficial veins: Greater saphenous vein at the saphenofemoral junction is patent without thrombus. Soft tissues: Unremarkable. US/[place] [id number] IMPRESSION: No evidence of deep vein thrombosis.
--- NOTE | 2024-03-01 21:26 | XRR_ITS ---
PROCEDURE INFORMATION: Exam: XR Right Knee Exam date and time: 03/01/2024 9:35 PM Age: 54 years old Clinical indication: Pain; Knee; Right; Additional info: Lateral knee pain TECHNIQUE: Imaging protocol: Radiologic exam of the right knee. Views: 3 views. COMPARISON: [place] [id number] 02/21/2024 8:14 PM FINDINGS: Bones/joints: Normal. Soft tissues: Normal. XR/XR knee RT 3V* [id number] IMPRESSION: No acute findings.
[2024-03-01 21:36] VITALS: BP 108/72; PULSE 67; O2SAT 96
--- NOTE | 2024-03-01 22:18 | ED_ITS ---
HPI - Extremity Problem General: Chief complaint: Extremity Problem,Nontraumatic Stated complaint: right knee pain Time Seen by Provider: 03/01/24 21:16 Source: patient Mode of arrival: ambulatory Limitations: no limitations History of Present Illness: Patient is a 54-year-old female who recently was in the hospital for multiple pulmonary embolus as well as NSTEMI, presenting with atraumatic right knee pain today. Patient states pain is to the right lateral knee, feels as if she sat crisscross for long period of time. Has known DVT in her left leg, is currently taking 5 mg twice a day of the Eliquis. She is denying any shortness of breath, chest pain or other symptoms at this time. No trauma reported. MD Complaint: joint pain Onset (ago): hour(s) Pain Consistency: constant Location: right and knee Radiation: none Associated symptoms: Deny chest pain, fever(s) or rash Context: other (Recently diagnosed with pulmonary embolus as well as DVT and left lower extremity) Related Data Home Medications Medication Instructions Recorded Confirmed epinephrine 0.3 mg/0.3 mL 0.3 mg IM Q10M PRN Allergic 06/19/21 03/01/24 injection, auto-injector Reaction Previous Rx's Medication Instructions Recorded apixaban 5 mg tablet (Eliquis) 5 mg PO BID #120 tabs 02/22/24 Allergies Allergy/AdvReac Type Severity Reaction Status Date / Time bupropion [From Wellbutrin] AdvReac anger Verified 03/01/24 15:38 drospirenone AdvReac migraine Verified 03/01/24 15:38 [From Keerthi (28)] ethinyl estradiol AdvReac migraine Verified 03/01/24 15:38 [From Keerthi (28)] Review of Systems General: Reports: 10 or more systems reviewed and unremarkable except in HPI and below Const: Denies: fever(s) or chills Card: Denies: chest pain Resp: Denies: dyspnea or productive cough GI: Denies: abdominal pain, nausea, vomiting or diarrhea : Denies: flank pain Musc: Reports: joint pain (right knee); Denies: neck pain, back pain, extremity pain, extremity swelling, joint swelling, joint redness, joint warmth, limited range of motion or muscle weakness Skin/Breast: Denies: rash Neuro: Denies: headache(s), numbness in extremities or weakness in extremities PFSH ED PFSH: Medical History DVT (deep venous thrombosis) Pulmonary embolism Non-ST elevated myocardial infarction (non-STEMI) Hyperlipidemia LDL goal <70 Essential hypertension Social History Smoking and tobacco/nicotine status: former use of tobacco/nicotine Physical Exam Const: COMMON NORMALS: no acute distress, patient oriented x3, no limitations, healthy appearing, alert and well nourished HENMT: COMMON NORMALS: normocephalic and atraumatic HEAD & SCALP: normocephalic and atraumatic Neck/C-Spine: COMMON NORMALS: full ROM, supple and no meningeal signs Resp: COMMON NORMALS: normal respiratory effort, No use of accessory muscles and clear to auscultation bilaterally AUSCULTATION: clear to auscultation bilaterally Cardio: COMMON NORMALS: regular rate and regular rhythm RATE: regular rate RHYTHM: regular rhythm Extremity: COMMON NORMALS: normal to inspection, full ROM, capillary refill normal, no joint enlargement and no clubbing, cyanosis or edema NARRATIVE EXTREMITY EXAM: Mild reproducible tenderness to palpation of the right lateral knee, extending to the popliteal fossa. There is no palpable cord. No significant calf tenderness to palpation. Distal pulses palpable. Neuro: COMMON NORMALS: patient oriented x3, moves all extremities, no focal motor deficits and no sensory deficits noted SENSORIUM/ORIENTATION: Yes alert MENINGEAL SIGNS: Yes no meningeal signs Skin: COMMON NORMALS: no rashes or lesions noted GENERAL SKIN EXAM: no rashes or lesions noted Course Vital Signs: Vital signs: Vital Signs Temperature 98.1 F 03/01/24 21:03 Pulse Rate 69 03/01/24 23:37 Respiratory Rate 16 03/01/24 21:03 Blood Pressure 126/90 03/01/24 23:37 Pulse Oximetry 99 03/01/24 23:37 Oxygen Delivery Me thod Room Air 03/01/24 21:03 MDM - Extremity (Nontraumatic) Medical Decision Making Patient recently hospitalized with numerous pulmonary emboli left lower DVT and an NSTEMI. Today had onset of atraumatic lateral right knee pain, was concerned that this was another clot and wanted evaluation. Ultrasound did not reveal any evidence of DVT, additionally an x-ray did not show any acute abnormalities. Differential includes ruptured Curry's cyst, musculoskeletal pain, or contusion. She will continue with her regimen of Eliquis and follow-up with specialists as already planned. Return precautions given and she will be discharged home at this time. Lab Data Radiology Impressions Knee X-Ray 03/01/24 21:26 IMPRESSION: No acute findings. Venous Duplex 03/01/24 21:26 IMPRESSION: No evidence of deep vein thrombosis. All radiology interpretation(s) finalized by discharge Discharge Plan Discharge Patient Disposition: Home Clinical Impression: Knee pain, right Qualifiers: Chronicity: acute Qualified Code(s): M25.561 - Pain in right knee Condition: Stable Prescriptions: No Action epinephrine 0.3 mg/0.3 mL auto-injector 0.3 mg IM Q10M PRN (Reason: Allergic Reaction) Rx Instructions: for 2 doses Eliquis 5 mg tablet 5 mg PO BID Qty: 120 8RF Rx Instructions: 10 mg twice daily for 7 days then 5 mg twice daily lifelong Discharge Orders: Discharge ED (Routine); Ordered 03/01/24 Ordered By: Tristian García Referrals: Moraima Tinsley MD [Family Provider] - Jesse Clark MD [Primary Care Provider] - Discharge Diet: Usual diet Discharge Activity: Increase activity as tolerated Patient Instructions: Pain Management Activity Restrictions/Additional Instructions: Continue taking Eliquis. Take Tylenol for any pain, and please follow-up with primary care as needed. Continue other follow-ups as well. Return with any new or concerning symptoms you may have. Coding Level of Care Code ED Title I Instructional Assistant for Earl Batista
[2024-03-01 22:36] VITALS: BP 114/81; PULSE 73; O2SAT 98
[2024-03-01 23:37] VITALS: BP 126/90; PULSE 69; O2SAT 99
== END 2024-03-01 23:39 | disposition home or self-care (01) ==
PROVIDERS: Emergency Provider Physician Assistant; Family Provider Family Medicine; PCP Family Medicine
DX: M25.561 Pain in right knee (principal); Z79.01 Long term (current) use of anticoagulants; Z86.718 Personal history of other venous thrombosis and embolism; Z86.711 Personal history of pulmonary embolism
CPT/HCPCS: 73562; 93971; 99284

== ENCOUNTER 2024-03-10 07:48 | Oncology outpatient (recurring) (ONCR) | payer OTHER, SELFPAY ==
[2024-03-10 08:20] LABS: Basophils # 0.1 10^3/uL (0.0-0.1); Basophils % 0.8 %; Eosinophils # 0.2 10^3/uL (0.0-0.8); Hematocrit 41.8 % (36-47); Lymphocytes # 2.5 10^3/uL (0.8-4.8); Lymphocytes % 39.5 %; Mean Corpuscular HGB Conc 32.8 g/dL (30-55); Mean Corpuscular Volume 97.7 fl (85-98); Mean Platelet Volume 9.7 fL (7.4-10.4); Monocytes # 0.5 10^3/uL (0.2-0.9); Monocytes % 7.3 %; Neutrophils # 3.16 10^3/uL (1.8-7.7); Neutrophils % 49.2 %; Nucleated Red Blood Cells % 0 %; Platelet Count 286 10^3/cmm (157-399); Red Blood Count 4.28 10^6/uL (3.85-5.65); Red Cell Distribution Width 12.5 % (12.1-15.1); White Blood Count 6.41 10^3/uL (3.29-11.43)
[2024-03-13 16:40] LABS: CARDIOLIPIN AB (IGA) <2.0 APL-U/mL; CARDIOLIPIN AB (IGG) <2.0 GPL-U/mL; CARDIOLIPIN AB (IGM) <2.0 MPL-U/mL
[2024-03-13 19:14] LABS: PTT-LA-Screen 35 sec (< OR = 40)
[2024-03-14 11:00] LABS: Protein S Antigen, Total 139 % normal (70-140)
[2024-03-15 04:05] LABS: Beta 2 Glycoprotein IGA <2.0 U/mL (<20.0); Beta 2 Glycoprotein IGG <2.0 U/mL (<20.0); Beta 2 Glycoprotein IGM <2.0 U/mL (<20.0)
[2024-03-15 06:19] LABS: PROTEIN C, ACTIVITY 169 % normal (70-180)
[2024-03-15 06:40] LABS: Antithrombin III Activity 118 % normal (80-135)
[2024-03-17 18:44] LABS: Factor 5 Leiden Mutation NEGATIVE
[2024-03-18 10:20] LABS: PROTHROMBIN (FACTOR II) 20210G NEGATIVE
== END 2024-04-06 23:59 | disposition home or self-care (01) ==
PROVIDERS: Family Provider Family Medicine; PCP Family Medicine; Visit Provider Internal Medicine Hematology & Oncology
DX: D68.69 Other thrombophilia; I82.402 Acute embolism and thrombosis of unspecified deep veins of left lower extremity
CPT/HCPCS: 36415; 81241; 85025; 85210; 85300; 85303; 85305; 85613; 85730; 86146; 86147

== ENCOUNTER 2024-04-10 10:41 | Oncology outpatient (recurring) (ONCR) | payer OTHER, SELFPAY ==
--- NOTE | 2024-04-10 11:00 | USCV_ITS ---
Renae Messina Age: 54 Gender: F : 1970 Exam Date: 04/10/2024 10:48 Ordering Phys: Amy Ramírez MD ([email or web address]) Technologist: PHYLLIS Exam Location: [facility] Indication: LE Pain. h/o Lt Pop Partial DVT HISTORY: Lower extremity pain. History of deep venous thrombosis. PROCEDURES: Venous duplex imaging was performed in bilateral lower extremities. The following venous structures were evaluated: common femoral vein, profunda vein, proximal portion of the greater saphenous vein, superficial femoral vein, and the popliteal vein. In addition, the posterior tibial and peroneal trunk were evaluated. Serial compression, augmentation maneuvers, and spectral Doppler flow evaluation were performed. FINDINGS: No evidence of DVT seen in any vessel visualized at this time. CONCLUSIONS No evidence of right lower extremity DVT. No evidence of left lower extremity DVT. Margarito Barrios MD (Electronically Signed) Final Date: 10 April 2024 15:43 S
== END 2024-05-06 23:59 | disposition home or self-care (01) ==
LOC: RAD 10:41 → ONCMED 04-11 09:17
PROVIDERS: Family Provider Family Medicine; PCP Family Medicine; Visit Provider Internal Medicine Cardiovascular Disease
DX: I82.402 Acute embolism and thrombosis of unspecified deep veins of left lower extremity (principal); D68.69 Other thrombophilia; I82.409 Acute embolism and thrombosis of unspecified deep veins of unspecified lower extremity; M79.604 Pain in right leg; M79.605 Pain in left leg
CPT/HCPCS: 93970

== ENCOUNTER 2024-05-01 08:46 | Outpatient (CLI) | payer OTHER, SELFPAY ==
[2024-05-01 09:07] VITALS: BMI 31.9
--- NOTE | 2024-05-01 09:13 | ECG_ITS ---
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 The perfusion scan will be documented separately. DATA: Baseline heart rate was 55 beats per minute. Baseline blood pressure was 102/76 millimeters of mercury. Target heart rate was 164. Maximum heart rate achieved was 84. which was 51% of the predicted target heart rate. Maximum blood pressure was 127/85 millimeters of mercury. The reason for ending the test was [completion of the protocol]. The patient did not experience any symptoms. [] ELECTROCARDIOGRAM: BASELINE: Sinus bradycardia. Normal axis. Otherwise, no ST-T changes suggestive of ischemia noted. No arrhythmia noted. [] EXERCISE: After Lexiscan injection, no ST-T changes suggestive of ischemic noted. No arrhythmia noted. [] CONCLUSION: Please note due to baseline abnormality of the EKG specificity and sensitivity of the EKG portion of LexiScan MIBI stress test will be low 1. [EKG not suggestive of ischemia] 2. [Lexiscan injection unremarkable]. 3. Perfusion scan will be documented separately. [] Electronically Signed On 05-10-2024 00:16:45 TIE HACKER by AMY RAMÍREZ [email or web address]
--- NOTE | 2024-05-01 09:13 | NMCV_ITS ---
NM moshe perf SPECT r/s* [id number] Renae Messina Age: 54 Gender: F : 1970 Exam Date: 05/01/2024 09:13 Ordering Phys: Amy Ramírez MD ([email or web address]) Technologist: JOSHUA Mcghee Exam Location: [facility] Indications: cp STRESS TEST Please see separate stress test report in [facility] for full findings IMAGE PROTOCOL Rest/Stress 1 Lexiscan Day Radiopharmaceutical Dose (mCi) Administration Site Administered by Rest: Tc-99m 10.9 IV Nathalie Sanz, BIOPHYSICS SCIENTIST Sestamibi Stress:Tc-99m 32.9 IV Nathalie Sanz, BIOPHYSICS SCIENTIST Sestamibi Rest: 01-May-2024 60 Discovery 630 Stress: 01-May-2024 30 Discovery 630 0.4mg Lexiscan. Images obtained in supine and prone position. SPECT RESULTS Technical Quality: Good Raw Data Analysis: Normal Image Corrections: No attenuation or motion correction applied Summed Stress Score: 1 Summed Rest Score: 0 Summed Difference Score: 1 PERFUSION FINDINGS SPECT images demonstrate homogeneous tracer distribution throughout the myocardium. FUNCTIONAL RESULTS (calculated via Gated SPECT) Stress Image LV EF (%): 65 Stress EDV (mL):81 TID: 0.96 Stress ESV (mL):28 FUNCTIONAL FINDINGS: There is normal left ventricular systolic function. IMPRESSIONS Myocardial perfusion imaging is normal. Amy Ramírez MD (Electronically Signed) Final Date: 01 May 2024 15:27 S
[2024-05-01] MEDS: regadenoson 0.4 Mg/5 ml Syringe IVP (11:00)
[2024-05-01 11:14] VITALS: BP 134/66; PULSE 65
== END 2024-05-01 08:47 | disposition home or self-care (01) ==
LOC: CDL 08:47
PROVIDERS: Family Provider Family Medicine; PCP Family Medicine; Visit Provider Internal Medicine Cardiovascular Disease
DX: R07.9 Chest pain, unspecified (principal); R06.02 Shortness of breath
CPT/HCPCS: 36415; 78452; 93017; 96374; A9500; J2785

== ENCOUNTER 2024-09-16 10:54 | Emergency (ER) | payer BC, OTHER, SELFPAY ==
[2024-09-16 11:02] VITALS: BP 154/86; PULSE 74; RESP 15; TEMP 36.7; O2SAT 100; BMI 31.1
--- NOTE | 2024-09-16 11:32 | USR_ITS ---
PROCEDURE INFORMATION: Exam: US Duplex Right Lower Extremity Veins, Limited Exam date and time: 09/16/2024 12:10 PM Age: 54 years old Clinical indication: Pain; Leg, lower; Right; Additional info: Right-sided calf pain and swelling. Concern for dvt TECHNIQUE: Imaging protocol: Real-time duplex ultrasound of the right extremity with 2-D corbett scale, color Doppler flow and spectral waveform analysis including responses to compression and other maneuvers (when performed) with image documentation. Limited exam was focused on the right lower extremity veins. COMPARISON: [place] [id number] 03/01/2024 9:56 PM FINDINGS: Right deep veins: Unremarkable. The common femoral, femoral, proximal profunda femoral and popliteal vein as well as the visualized deep veins of the lower legs are patent without thrombus. Normal Doppler waveforms. Normal compressibility and/or augmentation response. Superficial veins: Greater saphenous vein at the saphenofemoral junction is patent without thrombus. Soft tissues: Unremarkable. US/[place] [id number] IMPRESSION: No evidence of deep vein thrombosis.
--- NOTE | 2024-09-16 11:34 | W.ED.EXTPRO ---
HPI - Extremity Problem General: Chief complaint: Extremity Injury, Lower Stated complaint: pain in r. knee Time Seen by Provider: 09/16/24 11:04 History of Present Illness: 54-year-old female with a history of DVT with chronic anticoagulation on Eliquis who presents emergency room with right popliteal, calf and thigh pain. She says she had done some gardening and initially thought she had strained a muscle. Then she developed pain in her popliteal area. Then it went down her calf. Now it is going up her thigh. She is concerned for a new DVT. She is on Eliquis and has not missed any doses. There is no obvious redness or swelling. No fevers. No chest pain. No shortness of breath. Related Data Home Medications ?Medication ?Instructions ?Recorded ?Confirmed epinephrine 0.3 mg/0.3 mL 0.3 mg IM Q10M PRN Allergic 06/19/21 09/16/24 injection, auto-injector Reaction cholecalciferol (vitamin D3) 250 250 mcg PO DAILY 03/10/24 09/16/24 mcg (10,000 unit) capsule magnesium glyconate 800 mg PO DAILY 03/10/24 09/16/24 vitamin B complex 1 tab PO DAILY 03/10/24 09/16/24 Previous Rx's ?Medication ?Instructions ?Recorded apixaban 5 mg tablet (Eliquis) 5 mg PO BID #120 tabs 02/22/24 Allergies Allergy/AdvReac Type Severity Reaction Status Date / Time bupropion (From Wellbutrin) AdvReac anger Verified 09/16/24 11:08 drospirenone (From Keerthi AdvReac migraine Verified 09/16/24 11:08 (28)) ethinyl estradiol (From AdvReac migraine Verified 09/16/24 11:08 Keerthi (28)) Review of Systems Narrative: Constitutional symptoms: Negative except as documented in HPI. Skin symptoms: Negative except as documented in HPI. Eye symptoms: Negative except as documented in HPI. ENMT symptoms: Negative except as documented in HPI. Respiratory symptoms: Negative except as documented in HPI. Cardiovascular symptoms: Negative except as documented in HPI. Gastrointestinal symptoms: Negative except as documented in HPI. Genitourinary symptoms: Negative except as documented in HPI. Musculoskeletal symptoms: Negative except as documented in HPI. Neurologic symptoms: Negative except as documented in HPI. Psychiatric symptoms: Negative except as documented in HPI. Endocrine symptoms: Negative except as documented in HPI. [facility] ED PFSH: Medical History (Updated 09/16/24 @ 12:31 by Vee Estrella MD) Obesity (BMI 30.0-34.9) Plantar fasciitis IBS (irritable bowel syndrome) DVT (deep venous thrombosis) Pulmonary embolism Non-ST elevated myocardial infarction (non-STEMI) Hyperlipidemia LDL goal <70 Essential hypertension Surgical History Hx of arthroscopy of left knee Social History Smoking and tobacco/nicotine status: former use of tobacco/nicotine Quit status (tobacco/nicotine): has quit using Year quit tobacco: 1987 Former quit date comment: 4 years total tobacco use Alcohol intake: current Alcohol intake frequency: 0-2 Drinks per Day Substance/Drug Use: never Female Reproductive History: Para: 0 Spontaneous abortions: Yes Date of menopause: 06/07/14 Physical Exam Narrative: EXAM NARRATIVE: General: Alert, no acute distress. Skin: warm and dry Head: Normocephalic Neck: Trachea midline Eye: Extraocular movements are intact. Ears, nose, mouth and throat: Oral mucosa moist Respiratory: Respirations are non-labored Musculoskeletal: Normal ROM, no obvious redness or swelling. Patient complains of pain in the popliteal area down her calf and upper thigh. Neurological: Alert and oriented, No focal neurological deficit observed. Psychiatric: Cooperative, appropriate mood & affect. Course Vital Signs: Vital signs: Vital Signs Temperature 98.1 F 09/16/24 11:02 Pulse Rate 74 09/16/24 11:02 Respiratory Rate 15 09/16/24 11:02 Blood Pressure 154/86 09/16/24 11:02 Pulse Oximetry 100 09/16/24 11:02 Oxygen Delivery Me thod Room Air 09/16/24 11:02 MDM - Extremity (Nontraumatic) Medical Decision Making Ultrasound of the right lower extremity: No DVT or other pathology. This was reviewed and interpreted by myself the emergency room physician. I also reviewed the radiology report. Assessment and plan: Muscle strain History of DVT Chronic anticoagulation on Eliquis - Discharged home - Discussed plan with patient. Answered any questions. - Evaluation and treatment of this problem were appropriate in the emergency setting. All radiology interpretation(s) finalized by discharge Discharge Plan Discharge Patient Disposition: Home Clinical Impression: Muscle strain, History of deep vein thrombosis, Chronic anticoagulation Condition: Stable Prescriptions: No Action epinephrine 0.3 mg/0.3 mL auto-injector 0.3 mg IM Q10M PRN (Reason: Allergic Reaction) Rx Instructions: for 2 doses cholecalciferol (vitamin D3) 250 mcg (10,000 unit) capsule 250 mcg PO DAILY magnesium glyconate 800 mg PO DAILY vitamin B complex Tablet 1 tab PO DAILY Eliquis 5 mg tablet 5 mg PO BID Qty: 120 8RF Rx Instructions: 10 mg twice daily for 7 days then 5 mg twice daily lifelong Discharge Orders: Discharge ED (Routine); Ordered 09/16/24 Ordered By: Vee Estrella Referrals: Moraima Tinsley MD [Family Provider] - Jesse Clark MD [Primary Care Provider] - Discharge Diet: Usual diet Discharge Activity: Increase activity as tolerated Patient Instructions: Muscle Strain (ED), Opioid Safety, Pain Management Activity Restrictions/Additional Instructions: Thank you for choosing [facility] for your healthcare needs today. Please realize this is an emergency room and that we are providing you with a medical screening exam and this may not be complete and all inclusive of all the testing and or work up that you may need to determine your ailment or severity of your illness. You have been screened and evaluated and felt safe for discharge. Health conditions do change or evolve sometimes and as such it is important that you follow up with your Primary Doctor to be re checked, 3-5 days is a general good time frame for follow up. You are always welcome to return to the ED for re assessment if your symptoms are worsening or you have new concerns Print Language: Belizean Coding Level of Care Code ED [employer] Clerk for Earl Batista
[2024-09-16 12:32] VITALS: BP 138/82; PULSE 60; RESP 19; O2SAT 100
== END 2024-09-16 12:36 | disposition home or self-care (01) ==
PROVIDERS: Emergency Provider Emergency Medicine; PCP Family Medicine
DX: S86.911A Strain of unspecified muscle(s) and tendon(s) at lower leg level, right leg, initial encounter (principal); Z86.718 Personal history of other venous thrombosis and embolism; Z79.01 Long term (current) use of anticoagulants; Z87.891 Personal history of nicotine dependence; E78.5 Hyperlipidemia, unspecified; I10 Essential (primary) hypertension; X58.XXXA Exposure to other specified factors, initial encounter
CPT/HCPCS: 93971; 99284

== ENCOUNTER 2025-03-29 11:51 | Outpatient (CLI) | payer OTHER, SELFPAY ==
--- NOTE | 2025-03-29 12:00 | MM_ITS ---
WS: [id number] BILATERAL SCREENING DIGITAL TOMOSYNTHESIS MAMMOGRAM WITH CAD HISTORY: SCREENING COMPARISON: 05/22/2011 Bilateral CC and MLO views with tomosynthesis and synthetic mammography submitted. Computer aided detection analyzed. Breast composition: The breasts are heterogeneously dense, which may obscure small masses. No suspicious masses, microcalcifications or architectural distortion. Benign scattered calcifications. MM/MM scr BI tomosynthesis [id number] IMPRESSION: BI-RADS: 2 - Benign FOLLOW UP: 1 Year Follow-up
== END 2025-03-29 11:52 | disposition home or self-care (01) ==
LOC: MOBLMAM 11:53
PROVIDERS: PCP Family Medicine; Visit Provider Family Medicine
DX: Z12.31 Encounter for screening mammogram for malignant neoplasm of breast (principal); R92.333 Mammographic heterogeneous density, bilateral breasts; R92.1 Mammographic calcification found on diagnostic imaging of breast
CPT/HCPCS: 77063; 77067